=== PATIENT | female | born 1980 ===

== ENCOUNTER 2018-01-25 03:09 | Inpatient (IN) ==
[2018-01-25 09:58] VITALS: BP 145/82; PULSE 56; RESP 16; TEMP 98.8
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
== END 2018-01-25 18:55 | disposition home or self-care (01) ==
LOC: H270 09:58
PROVIDERS: ADMIT Psychiatry & Neurology Psychiatry; ATTEND Psychiatry & Neurology Psychiatry